=== PATIENT | male | born 1980 | race African-American/Black ===

== ENCOUNTER 2018-03-04 13:05 | Inpatient (IN) ==
[2018-03-04] MEDS ORDERED: PIPERACILLIN/TAZOBACTAM 3,375 MG in SODIUM CHLORIDE 0.9% 100 ML IV STA (13:55)
[2018-03-04] MEDS ORDERED: ONDANSETRON 4 MG/2 ML VIAL IV PRN ×2 (13:57→15:52)
[2018-03-04] MEDS ORDERED: PANTOPRAZOLE 40 MG VIAL IV SCH (14:00)
[2018-03-04] MEDS ORDERED: PIPERACILLIN/TAZOBACTAM 3,375 MG in SODIUM CHLORIDE 0.9% 100 ML IV SCH (14:00)
[2018-03-04] MEDS: LACTATED RINGERS 1,000 ML IV SCH ×2 (14:10→22:18)
[2018-03-04] MEDS ORDERED: ONDANSETRON 4 MG/2 ML VIAL ONE ×2 (15:32→15:37)
[2018-03-04] MEDS ORDERED: MEPERIDINE 25 MG/1 ML VIAL ONE ×2 (15:32→16:08)
[2018-03-04] MEDS: MEPERIDINE 25 MG/1 ML VIAL IV PRN ×2 (15:35→16:12)
[2018-03-04] MEDS ORDERED: PROPOFOL 200 MG/20 ML VIAL IV ONE (15:36)
[2018-03-04] MEDS ORDERED: LIDOCAINE 2% TOP JELLY 5 ML TUBE TOP ONE (15:36)
[2018-03-04] MEDS ORDERED: PHENYLEPHRINE 0.5% NASAL SPRAY 15 ML BOTTLE BOTH NARES ONE (15:37)
[2018-03-04] MEDS ORDERED: GLYCOPYRROLATE 0.4 MG/2 ML VIAL ONE (15:37)
[2018-03-04] MEDS ORDERED: DEXAMETHASONE 10 MG/1 ML VIAL ONE (15:37)
[2018-03-04] MEDS ORDERED: MIDAZOLAM 2 MG/2 ML VIAL ONE (15:37)
[2018-03-04] MEDS ORDERED: SEVOFLURANE 1 UNIT/15 MINUTE INH ONE (15:37)
[2018-03-04] MEDS ORDERED: NEOSTIGMINE 10 MG/10 ML VIAL ONE (15:38)
[2018-03-04] MEDS ORDERED: LACTATED RINGERS 1,000 ML IV ONE (15:38)
[2018-03-04] MEDS ORDERED: ACETAMINOPHEN 1,000 MG/100 ML VIAL IV ONE (15:38)
[2018-03-04] MEDS ORDERED: SUCCINYLCHOLINE 200 MG/10 ML VIAL ONE (15:38)
[2018-03-04] MEDS ORDERED: ROCURONIUM 100 MG/10 ML VIAL IV ONE (15:38)
[2018-03-04] MEDS ORDERED: PHENYLEPHRINE 1 MG/10 ML SYRINGE IV ONE (15:38)
[2018-03-04 15:43] LABS: Apearance,Urine CLEAR (Clear); Bilirubin,Urine Negative (Negative); Blood, Urine Negative (Negative); Glucose,Urine (UA) 50 mg/dL (Negative); Ketones,Urine Negative (Negative); Mucus,Urine Occasional /LPF (Occasional); Nitrite,Urine Negative (Negative); Protein,Urine Negative; RBC,Urine <1 /HPF (0-4); Urine Color Yellow (Yellow); WBC,Urine 1 /HPF (0-6)
[2018-03-04] MEDS: AZITHROMYCIN INJ 500 MG in SODIUM CHLORIDE 0.9% 250 ML IV SCH (19:00)
[2018-03-04] MEDS: PANTOPRAZOLE 40 MG VIAL IV SCH (20:43)
[2018-03-04] MEDS: AMPICILLIN INJ 1,000 MG in SODIUM CHLORIDE 0.9% 100 ML IV SCH (22:18)
[2018-03-05] MEDS: AMPICILLIN INJ 1,000 MG in SODIUM CHLORIDE 0.9% 100 ML IV SCH ×6 (02:59→21:39)
[2018-03-05] MEDS: HYDROmorphone 2 MG/1 ML VIAL IV PRN ×2 (03:00→11:11)
[2018-03-05] MEDS: LACTATED RINGERS 1,000 ML IV SCH ×4 (07:50→18:34)
[2018-03-05 08:18] LABS: Bilirubin,Total 0.9 MG/DL (0.2-1.0); Calcium 8.6 MG/DL (8.5-10.1); Osmolality,Calculated 279.3 MOS/KG (273-304); Potassium 3.9 MMOL/L (3.5-5.1); Total Protein 6.4 G/DL (6.4-8.3)
[2018-03-05] MEDS: PANTOPRAZOLE 40 MG VIAL IV SCH ×2 (08:24→21:33)
[2018-03-05 08:32] LABS: Basophils % 0.2 % (0.0-0.8); Hematocrit 37.4 VOL% (42.0-52.0); Hemoglobin 13.9 GM/DL (14.0-18.0); Immature Granulocytes % 0.5 %; Immature Granulocytes Absolute 0.06 #; Lymphocytes # 0.9 10*3/uL (1.4-4.0); Lymphocytes % 6.7 % (21.2-54.2); Mean Corpuscular HGB Conc 37.2 GM/DL (32-36); Mean Corpuscular Hemoglobin 29 PG (27-34); Mean Corpuscular Volume 78.7 FL (87-102); Mean Platelet Volume 11.5 FL (9.6-12.0); Monocytes # 0.8 10*3/uL (0.11-0.8); Neutrophils # 11.5 10*3/uL (1.4-7.4); Neutrophils % 86.6 % (38.7-73.9); Platelet Count 195 T/CUMM (130-400); Red Blood Count 4.75 MC/CUMM (3.8-5.5); Red Cell Distribution Width 14.1 % (9.3-17.3); White Blood Count 13.3 T/CUMM (4-12)
[2018-03-05 08:51] LABS: Band Neutrophils 6 % (0-10); Lymphocytes 6 % (20-55); Platelet Estimate Adequate; Segmented Neutrophils 83 % (50-85); Total Cells Counted 100
[2018-03-05 08:52] LABS: Hypochromasia 1+; Target Cells Few
[2018-03-05 10:05] LABS: Basophils % 0.1 % (0.0-0.8); Hematocrit 37.4 VOL% (42.0-52.0); Hemoglobin 14.1 GM/DL (14.0-18.0); Immature Granulocytes % 0.4 %; Immature Granulocytes Absolute 0.06 #; Lymphocytes # 0.9 10*3/uL (1.4-4.0); Lymphocytes % 6.5 % (21.2-54.2); Mean Corpuscular HGB Conc 37.7 GM/DL (32-36); Mean Corpuscular Hemoglobin 30 PG (27-34); Mean Corpuscular Volume 78.6 FL (87-102); Mean Platelet Volume 11.9 FL (9.6-12.0); Monocytes # 0.8 10*3/uL (0.11-0.8); Monocytes % 6.1 % (1.7-12.7); Neutrophils # 11.8 10*3/uL (1.4-7.4); Neutrophils % 86.9 % (38.7-73.9); Platelet Count 188 T/CUMM (130-400); Red Blood Count 4.76 MC/CUMM (3.8-5.5); Red Cell Distribution Width 13.9 % (9.3-17.3); White Blood Count 13.6 T/CUMM (4-12)
[2018-03-05 10:32] LABS: Lymphocytes 4 % (20-55); Segmented Neutrophils 91 % (50-85); Total Cells Counted 100
[2018-03-05 10:35] LABS: Target Cells Slight
[2018-03-05 10:40] LABS: Platelet Estimate Normal
[2018-03-05] MEDS: ENOXAPARIN 40 MG/0.4 ML SYRINGE SUBCUT SCH (17:30)
[2018-03-05] MEDS: AZITHROMYCIN INJ 500 MG in SODIUM CHLORIDE 0.9% 250 ML IV SCH (17:30)
[2018-03-06] MEDS: LACTATED RINGERS 1,000 ML IV SCH ×2 (04:24→07:38)
[2018-03-06] MEDS: AMPICILLIN INJ 1,000 MG in SODIUM CHLORIDE 0.9% 100 ML IV SCH ×6 (04:25→22:05)
[2018-03-06 06:10] LABS: Basophils % 0.3 % (0.0-0.8); Eosinophils % 0.4 % (0.00-10.9); Hematocrit 34.1 VOL% (42.0-52.0); Hemoglobin 12.5 GM/DL (14.0-18.0); Immature Granulocytes % 0.4 %; Immature Granulocytes Absolute 0.04 #; Lymphocytes # 1.1 10*3/uL (1.4-4.0); Lymphocytes % 11.5 % (21.2-54.2); Mean Corpuscular HGB Conc 36.7 GM/DL (32-36); Mean Corpuscular Hemoglobin 30 PG (27-34); Mean Corpuscular Volume 81.4 FL (87-102); Mean Platelet Volume 12.2 FL (9.6-12.0); Monocytes # 0.8 10*3/uL (0.11-0.8); Monocytes % 8.2 % (1.7-12.7); Neutrophils # 7.6 10*3/uL (1.4-7.4); Neutrophils % 79.2 % (38.7-73.9); Platelet Count 168 T/CUMM (130-400); Red Blood Count 4.19 MC/CUMM (3.8-5.5); Red Cell Distribution Width 13.9 % (9.3-17.3); White Blood Count 9.6 T/CUMM (4-12)
[2018-03-06 06:33] LABS: Calcium 8.2 MG/DL (8.5-10.1); Osmolality,Calculated 278.3 MOS/KG (273-304); Potassium 3.4 MMOL/L (3.5-5.1)
[2018-03-06] MEDS: PANTOPRAZOLE 40 MG VIAL IV SCH ×2 (09:10→22:05)
[2018-03-06] MEDS: DEXT 5% NACL 0.45% KCL 20 MEQ 20 MEQ/1,000 ML BAG IV SCH ×2 (15:25→18:31)
[2018-03-06] MEDS: AZITHROMYCIN INJ 500 MG in SODIUM CHLORIDE 0.9% 250 ML IV SCH (17:29)
[2018-03-06] MEDS: ENOXAPARIN 40 MG/0.4 ML SYRINGE SUBCUT SCH (17:30)
[2018-03-07] MEDS: AMPICILLIN INJ 1,000 MG in SODIUM CHLORIDE 0.9% 100 ML IV SCH ×4 (01:13→13:44)
[2018-03-07] MEDS: DEXT 5% NACL 0.45% KCL 20 MEQ 20 MEQ/1,000 ML BAG IV SCH ×3 (03:43→21:12)
[2018-03-07 06:26] LABS: Basophils % 0.7 % (0.0-0.8); Eosinophils # 0.1 10*3/uL (0.0-0.87); Eosinophils % 2.6 % (0.00-10.9); Hematocrit 34.8 VOL% (42.0-52.0); Hemoglobin 12.6 GM/DL (14.0-18.0); Immature Granulocytes % 0.2 %; Immature Granulocytes Absolute 0.01 #; Lymphocytes # 1.1 10*3/uL (1.4-4.0); Lymphocytes % 20.8 % (21.2-54.2); Mean Corpuscular HGB Conc 36.2 GM/DL (32-36); Mean Corpuscular Hemoglobin 29 PG (27-34); Mean Corpuscular Volume 81.3 FL (87-102); Mean Platelet Volume 11.2 FL (9.6-12.0); Monocytes # 0.6 10*3/uL (0.11-0.8); Monocytes % 10.1 % (1.7-12.7); Neutrophils # 3.6 10*3/uL (1.4-7.4); Neutrophils % 65.6 % (38.7-73.9); Platelet Count 169 T/CUMM (130-400); Red Blood Count 4.28 MC/CUMM (3.8-5.5); Red Cell Distribution Width 13.7 % (9.3-17.3); White Blood Count 5.4 T/CUMM (4-12)
[2018-03-07 06:38] LABS: Calcium 8.1 MG/DL (8.5-10.1); Potassium 3.6 MMOL/L (3.5-5.1)
[2018-03-07] MEDS: PANTOPRAZOLE 40 MG VIAL IV SCH (09:36)
[2018-03-07] MEDS ORDERED: HYDROmorphone 2 MG/1 ML VIAL IV PRN (14:31)
[2018-03-07] MEDS: ENOXAPARIN 40 MG/0.4 ML SYRINGE SUBCUT SCH (16:10)
[2018-03-07] MEDS: CLARITHROMYCIN 500 MG TABLET PO SCH (21:12)
[2018-03-07] MEDS: PANTOPRAZOLE 40 MG TABLET PO SCH (21:12)
[2018-03-07] MEDS: AMOXICILLIN 500 MG CAPSULE PO SCH (21:12)
[2018-03-08 05:22] LABS: Basophils % 0.5 % (0.0-0.8); Eosinophils # 0.2 10*3/uL (0.0-0.87); Eosinophils % 4.3 % (0.00-10.9); Hematocrit 34.3 VOL% (42.0-52.0); Hemoglobin 12.7 GM/DL (14.0-18.0); Immature Granulocytes % 0.2 %; Immature Granulocytes Absolute 0.01 #; Lymphocytes # 1.4 10*3/uL (1.4-4.0); Lymphocytes % 33.3 % (21.2-54.2); Mean Corpuscular Hemoglobin 29 PG (27-34); Mean Corpuscular Volume 79.4 FL (87-102); Mean Platelet Volume 11.4 FL (9.6-12.0); Monocytes # 0.5 10*3/uL (0.11-0.8); Monocytes % 11.1 % (1.7-12.7); Neutrophils # 2.1 10*3/uL (1.4-7.4); Neutrophils % 50.6 % (38.7-73.9); Platelet Count 192 T/CUMM (130-400); Red Blood Count 4.32 MC/CUMM (3.8-5.5); Red Cell Distribution Width 13.5 % (9.3-17.3); White Blood Count 4.2 T/CUMM (4-12)
[2018-03-08 05:51] LABS: Calcium 8.5 MG/DL (8.5-10.1); Osmolality,Calculated 278.3 MOS/KG (273-304); Potassium 3.5 MMOL/L (3.5-5.1)
[2018-03-08] MEDS: DEXT 5% NACL 0.45% KCL 20 MEQ 20 MEQ/1,000 ML BAG IV SCH (06:26)
[2018-03-08] MEDS: CLARITHROMYCIN 500 MG TABLET PO SCH ×2 (08:58→21:29)
[2018-03-08] MEDS: PANTOPRAZOLE 40 MG TABLET PO SCH ×2 (08:58→21:28)
[2018-03-08] MEDS: AMOXICILLIN 500 MG CAPSULE PO SCH ×2 (08:58→21:28)
[2018-03-08] MEDS: ENOXAPARIN 40 MG/0.4 ML SYRINGE SUBCUT SCH (16:57)
[2018-03-09 08:34] VITALS: BP 140/99
[2018-03-09] MEDS: PANTOPRAZOLE 40 MG TABLET PO SCH (10:13)
[2018-03-09] MEDS: AMOXICILLIN 500 MG CAPSULE PO SCH (10:13)
[2018-03-09] MEDS: CLARITHROMYCIN 500 MG TABLET PO SCH (10:13)
== END 2018-03-09 10:20 | disposition home or self-care (01) | DRG 331 ==
LOC: N.ED 13:05 → N.SDSINP 13:57 → N.3E 16:43
PROVIDERS: ADMIT Surgery; ATTEND Surgery